=== PATIENT | female | born 1960 | race Caucasian/White ===

== ENCOUNTER 2018-05-19 12:15 | Day surgery (SDC) | payer OTHER ==
[~2018-05-19] VITALS: Ht 171.4 cm; Wt 96.8 kg
[~2018-05-19 12:15] MED LIST: ALBU8.5H8 IH; BUSP10TA23 PO; CALC1CAP PO; CARI350 PO; DOCU-281 PO; ENDOCET PO; FLUTICASON NASAL; GABA-533 PO; HYDR25TA PO; KDUR20 PO; LEVO25TA9 PO; LISI-662 PO; LORA10TA7 PO; MOME13HF IH; MONT10TA21 PO; MULT1TAB70 PO; OMEP20 PO; PARO10TA89 PO; PERCT10 PO; PROP20TA18 PO; PROZ10 PO; [UNRECOGNIZED DRUG - OTHER] IH
[2018-05-19] MEDS ORDERED: LIDOCAINE/PF 2% 5 ML VIAL IM ONE (12:16)
[2018-05-19] MEDS ORDERED: PROPOFOL 1% 20 ML VIAL IVP ONE (12:16)
[2018-05-19] MEDS ORDERED: SODIUM CHLORIDE 0.9% 1,000 ML IV ONE ×2 (12:30→12:37)
== END 2018-05-19 16:30 | disposition home or self-care (01) ==
LOC: SURGERY 12:15
PROVIDERS: ATTEND Student in an Organized Health Care Education/Training Program
DX: Z12.11 Encounter for screening for malignant neoplasm of colon (principal); K64.8 Other hemorrhoids; K44.9 Diaphragmatic hernia without obstruction or gangrene; J44.9 Chronic obstructive pulmonary disease, unspecified; I10 Essential (primary) hypertension; K31.89 Other diseases of stomach and duodenum; Z86.718 Personal history of other venous thrombosis and embolism
CPT/HCPCS: 43239; 45378; 88305; 88312; 88313; C1769; J2704; J3490; J7030